=== PATIENT | male | born 1995 | race Caucasian/White ===

== ENCOUNTER 2018-02-22 18:21 | Emergency (ER) | payer OTHER ==
[2018-02-22 18:47] VITALS: BP 143/70
--- NOTE | 2018-02-22 19:20 | UC ---
Skin Complaint HPI - HPI Summary HPI Summary: This is scribe Evonne Shelley documenting for attending Cata Parks M.D. Patient is a 22 y/o male who presents to the c/o skin infection. He states he noticed an ingrown hair above his left knee a week ago, and tried to pop it 6 days ago. 3 days ago, the pimple started to get bigger, became red, and spread in diameter. Patient tried to use a hot compress to reduce swelling, but states it didnt help much. He denies any drainage. He had a similar episode with an ingrown hair a year ago, that had to be drained and treated with antibiotics. - History of Current Complaint Chief Complaint: UCSkin Time Seen by Provider: 02/22/18 19:08 Stated Complaint: SORE ON THIGH Hx Obtained From: Patient Onset/Duration: Gradual Onset, Lasting Days - 3, Worse Since Current Severity: Mild Pain Intensity: 2 Pain Scale Used: 0-10 Numeric Location: Other - Above left knee Character: Swelling, Redness Aggravating Factor(s): Nothing Alleviating Factor(s): Other - Attempting to pop Associated Signs & Symptoms: Positive: Negative - Drainage Related History: Other: - 1 year ago - infected ingrown hair - Allergy/Home Medications Allergies/Adverse Reactions: Allergies Allergy/AdvReac Type Severity Reaction Status Date / Time sulfamethoxazole Allergy Hives Verified 02/22/18 18:48 [From Bactrim] trimethoprim [From Bactrim] Allergy Hives Verified 02/22/18 18:48 Review of Systems Constitutional: Negative - Fever Skin: Other - Infected ingrown hair All Other Systems Reviewed And Are Negative: Yes PMH/Surg Hx/FS Hx/Imm Hx Previously Healthy: Yes Endocrine History: Other Other Endocrine History: NEGATIVE: diabetes Cardiovascular History: Other Other Cardiovascular History: NEGATIVE: HTN - Surgical History Surgical History: Yes Surgery Procedure, Year, and Place: right wrist surgery - Family History Known Family History: Positive: Hypertension Negative: Diabetes - Social History Alcohol Use: Occasionally Substance Use Type: None Smoking Status (MU): Never Smoked Tobacco Physical Exam Triage Information Reviewed: Yes Appearance: Well-Appearing, No Pain Distress Vital Signs: Initial Vital Signs Temp 98.5 F 02/22/18 18:43 Pulse 64 02/22/18 18:43 Resp 20 02/22/18 18:43 BP 143/70 02/22/18 18:43 Pulse Ox 100 02/22/18 18:43 Respiratory: Positive: Lungs clear, Normal breath sounds Cardiovascular: Positive: RRR, No Murmur Psychological Exam: Normal Skin Exam: Other - left lateral distal thigh with 10 cm area of erythema and warmth, with a central indurated area about 2 cm. No fluctuance, no pointing or drainage. Course/Dx - Course Course Of Treatment: cephalexin for treatment of cellulitis - Differential Diagnoses - Skin Complaint Differential Diagnoses: Abscess, Cellulitis - Diagnoses Provider Diagnoses: cellulitis left thigh. Discharge - Sign-Out/Discharge Documenting (check all that apply): Patient Departure - Discharge Plan Condition: Stable Disposition: HOME Prescriptions: Cephalexin CAP* [Keflex 500 CAP*] 500 mg PO QID #28 cap Patient Education Materials: Cellulitis (ED) Referrals: No Primary Care Phys,NOPCP [Primary Care Provider] - Additional Instructions: If the redness improves quickly, you can stop the antibiotic after 5 days rather than taking a full 7 day course If an abscess forms, please return for drainage. You can use ibuprofen 600mg every 6 hours as needed for control of pain. Apply hot compresses to the area for 5 to 10 minutes 2 to 3 times per day. - Billing Disposition and Condition Condition: STABLE Disposition: Home
== END 2018-02-22 19:34 | disposition home or self-care (01) ==
LOC: UCEAST 18:21
DX: L03.116 Cellulitis of left lower limb (principal); Z88.2 Allergy status to sulfonamides
CPT/HCPCS: 99202; G0463

== ENCOUNTER 2018-02-23 16:35 | Emergency (ER) | payer OTHER ==
[2018-02-23 18:17] VITALS: BP 128/73
--- NOTE | 2018-02-23 18:56 | UC ---
Skin Complaint HPI - HPI Summary HPI Summary: seen yesterday with an abscess on left anterior lateral thigh-patient states it started as a small 'ingrown hair and he picked at it"--today area has a fluctuate center - History of Current Complaint Chief Complaint: UCSkin Time Seen by Provider: 02/23/18 18:30 Stated Complaint: WOUND RECHECK Hx Obtained From: Patient Onset/Duration: Gradual Onset, Worse Since - today Timing: Constant Onset Severity: Mild Current Severity: Moderate Pain Intensity: 5 Pain Scale Used: 0-10 Numeric Location: Discrete - left anterior lateral thigh Character: Pain, Redness, Raised Aggravating Factor(s): Nothing Alleviating Factor(s): Nothing Associated Signs & Symptoms: Positive: Tenderness - Allergy/Home Medications Allergies/Adverse Reactions: Allergies Allergy/AdvReac Type Severity Reaction Status Date / Time sulfamethoxazole Allergy Hives Verified 02/23/18 18:17 [From Bactrim] trimethoprim [From Bactrim] Allergy Hives Verified 02/23/18 18:17 Review of Systems Constitutional: Negative Skin: Other - abscess with purulent center left anterior lateral thigh Eyes: Negative ENT: Negative Respiratory: Negative Cardiovascular: Negative Gastrointestinal: Negative Genitourinary: Negative Motor: Negative Neurovascular: Negative Musculoskeletal: Negative Neurological: Negative Psychological: Negative Is Patient Immunocompromised?: No All Other Systems Reviewed And Are Negative: Yes PMH/Surg Hx/FS Hx/Imm Hx Previously Healthy: Yes - Surgical History Surgical History: Yes Surgery Procedure, Year, and Place: right wrist surgery - Family History Known Family History: Positive: Hypertension Negative: Diabetes - Social History Occupation: Student Lives: With Family Alcohol Use: Occasionally Substance Use Type: None Smoking Status (MU): Never Smoked Tobacco Physical Exam Triage Information Reviewed: Yes Appearance: Well-Appearing, No Pain Distress, Well-Nourished Vital Signs: Initial Vital Signs Temp 98.6 F 02/23/18 18:12 Pulse 73 02/23/18 18:12 Resp 16 02/23/18 18:12 BP 128/73 02/23/18 18:12 Pulse Ox 98 02/23/18 18:12 Vital Signs Reviewed: Yes Eye Exam: Normal Eyes: Positive: Conjunctiva Clear ENT Exam: Normal ENT: Positive: Normal ENT inspection, Hearing grossly normal. Negative: Trismus , Muffled voice, Hoarse voice Dental Exam: Normal Neck exam: Normal Neck: Positive: Supple, Nontender Respiratory Exam: Normal Respiratory: Positive: Chest non-tender, No respiratory distress, No accessory muscle use Cardiovascular Exam: Normal Cardiovascular: Positive: RRR, Pulses Normal, Brisk Capillary Refill Musculoskeletal Exam: Normal Musculoskeletal: Positive: Strength Intact, ROM Intact, No Edema Neurological Exam: Normal Neurological: Positive: Alert, Muscle Tone Normal Psychological Exam: Normal Skin Exam: Normal Skin: Positive: Other - 4 cm diameter with center purulance Re-Evaluation - Re-Evaluation First Eval Change: Improved - wound washed times with with betadine, time out complete, 5 mmincision made with number 11 blade-with purulent drainage from wound culture obtained Course/Dx - Course Course Of Treatment: wash with soap and water daily, warm compress several times a day (4-5) continue keflex follow prn - Diagnoses Provider Diagnoses: I&D abscess left anterior lateral thigh Discharge - Sign-Out/Discharge Documenting (check all that apply): Patient Departure - Discharge Plan Condition: Stable Disposition: HOME Patient Education Materials: Incision and Drainage (ED), Warm Compress or Soak (ED) Referrals: Care [facility] [Outside] - If Needed - Billing Disposition and Condition Condition: STABLE Disposition: Home
--- NOTE | 2018-02-25 08:31 | UC ---
- Progress Note Progress Note: Reviewed cx 02/23/18. Final cx pending. Meanwhile has rx cephalexin 02/23/18. Discharge - Sign-Out/Discharge Documenting (check all that apply): Post-Discharge Follow Up - Discharge Plan Condition: Stable Disposition: HOME Patient Education Materials: Incision and Drainage (ED), Warm Compress or Soak (ED) Referrals: Care [facility] [Outside] - If Needed - Billing Disposition and Condition Condition: STABLE Disposition: Home
--- NOTE | 2018-02-26 15:13 | UC ---
- Progress Note Progress Note: Wound culture final with sens to cefazolin therefore suspect sens to Keflex. No change. Discharge - Sign-Out/Discharge Documenting (check all that apply): Post-Discharge Follow Up - Discharge Plan Condition: Stable Disposition: HOME Patient Education Materials: Incision and Drainage (ED), Warm Compress or Soak (ED) Referrals: Care [facility] [Outside] - If Needed - Billing Disposition and Condition Condition: STABLE Disposition: Home Attestation Statement User Type: Provider - I was available for consult. This patient was seen by the JANUSZ. The patient was not presented to, seen by, or examined by me. -Chelo
== END 2018-02-23 19:06 | disposition home or self-care (01) ==
LOC: UCEAST 16:35
DX: L02.416 Cutaneous abscess of left lower limb (principal); Z88.2 Allergy status to sulfonamides; Z82.49 Family history of ischemic heart disease and other diseases of the circulatory system
CPT/HCPCS: 10060; 87070; 87077; 87186; 87205; 87640; 87641; 99211; G0463